=== PATIENT | male | born 1970 | race African-American/Black ===

== ENCOUNTER 2017-08-22 17:09 | Emergency (ER) | payer OTHER ==
[~2017-08-22] VITALS: Ht 180.3 cm; Wt 97.5 kg
[~2017-08-22 17:09] MED LIST: AMLODIPINE BESY10 MG PO; BENADRYL25 MG PO; BENAZEPRIL HCL20 MG PO; FLEXERIL PO; HYDROCHLOROTHIA25 M1 PO; HYDROCORTISONE3011 TP; NORCO 5-325 TA1 EACH PO; PEPCID40 MG PO; PREDNISONE 20 M20 MG PO; VISTARIL 25 MG25 M1 PO; XANAX 0.5 MG0.5 M1 PO
[2017-08-22] MEDS ORDERED: FLEXERIL PO (18:16)
[2017-08-22] MEDS ORDERED: MOBIC15 MG PO (18:16)
== END 2017-08-22 18:40 | disposition home or self-care (01) ==
LOC: ER 17:09
DX: S16.1XXA Strain of muscle, fascia and tendon at neck level, initial encounter (principal); M25.511 Pain in right shoulder; M79.641 Pain in right hand; I10 Essential (primary) hypertension; F17.210 Nicotine dependence, cigarettes, uncomplicated; V89.2XXA Person injured in unspecified motor-vehicle accident, traffic, initial encounter; Y93.89 Activity, other specified; Y92.89 Other specified places as the place of occurrence of the external cause; Y99.8 Other external cause status